=== PATIENT | male | born 1980 | race Caucasian/White ===

== ENCOUNTER 2017-05-10 18:57 | Emergency (ER) | payer BC ==
--- NOTE | 2017-05-12 13:56 | CR ---
INDICATION: Chest pain. CHEST: Portable AP upright view of the chest 05/10/2017 was obtained. No comparisons were available. Heart, mediastinum, and bony thorax were unremarkable. An active infiltrate or effusion was not identified. Overlying EKG leads are noted. IMPRESSION: No active disease. MTDD
--- NOTE | 2017-05-13 13:02 | ER ---
DATE SEEN: 05/10/2017 TIME SEEN: The patient was seen at 1900. HISTORY OF PRESENT ILLNESS: This is a 36-year-old [place] and also intermittent fork lift truck operator, who comes in with history of chest discomfort, sharp right suprasternal that came on at 3.30 to 4.30 this afternoon. He was working on the computer. His notes he was somewhat upset because the computer numbers were not matching [employer] and more upset than usual. 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 No history of trauma. No history of fever. No shortness of breath, diabetes, heart disease, high blood pressure, or other asthma. No history of sports or other related injury. No weight loss or weight gain. No other serious health problems. No history of dyslipidemia, gout, diabetes, and hypertension. Mother and father alive, well, and healthy. The patient is and his is attending and both are very pleasant. MEDICATIONS: None. ALLERGIES: None. REVIEW OF SYSTEMS: HEENT: Negative. CARDIORESPIRATORY: As noted above. No history of palpitations, syncope, presyncope, irregular heartbeat, diaphoresis, abdominal pain, nausea, vomiting, diarrhea, or emesis with chest pain. No reflux history. No weight loss history. GENITOURINARY: Negative. No dysuria, frequency, urgency, or difficulty passing urine. No prostatism. MUSCULOSKELETAL: Negative. Denies joint pain. Denies rheumatoid arthritis or other items for arthritis. PSYCHIATRIC: Negative. NEUROLOGIC: Negative. PHYSICAL EXAMINATION: VITAL SIGNS: Blood pressure 154/68 and repeat blood pressure 142/68; pulse 67, respirations 16, oxygen saturation 100%, and temperature 36.4 degrees. GENERAL: Muscular, well-tanned man, in no acute distress. No diaphoresis. HEENT: PERRLA intact. Pharynx without abnormality. No thyromegaly. No masses. NECK: No cervical adenopathy. LUNGS: Clear to auscultation without rales, rhonchi, or wheezes. HEART: S1, S2. No irregular rate or rhythm. No S3 or S4. ABDOMEN: Soft. No abdominal discomfort. No guarding. No CVA percussion tenderness. No spinous process tenderness to thoracic, lumbar spine, or cervical spine. He does have reproducible right third and fourth costochondral discomfort. No sternochondral discomfort. Radial and ulnar pulses intact. Cap refill intact. EXTREMITIES: Lower extremities without edema. Deep tendon reflexes normal to upper and lower extremities. Cranial nerves 2 through 12 intact. Strength intact to upper and lower extremities. DIAGNOSTIC STUDIES: EKG is normal sinus rhythm. T-wave inverted lead III. Otherwise, normal CA borderline left axis deviation. X-ray: Chest x-ray is negative. LABORATORY FINDINGS: Negative. Troponin is negative. 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 White count 7700, PMNs 60, lymphs 20, monos 10, and 6 eosinophils. D-dimer is less than 100. Troponin is less than 0.01. Complete metabolic panel otherwise normal, trace elevated AST and ALT. The patient is not an alcoholic. The patient after this lab tests were done, his note dhe lifted a 200+ pound rock 2 or 3 days ago, and this perhaps has something to do with his right 3 and 4 costochondritis. DIAGNOSES: 1. Right 3 and 4 costochondritis secondary to lifting a 200 to 250 pound rock. 2. Chest pain secondary to #1. 3. Elevated hemoglobin possibly secondary to machine exposure, carbon monoxide, carbon dioxide. 4. Trace elevation of AST and ALT, etiology indeterminate. He denies alcohol. No evidence for PE. Reassurance, slight elevation in eosinophils did not make the cut off 8%. Diagnosis of this slight elevation may reflect pulmonary irritation and/or could be gastrointestinal parasites. Follow up with his doctor in a week. No restrictions activity. Use ibuprofen 600 mg, Tylenol 1000 mg together every 6 hours for muscle discomfort, right upper chest costochondritis. /[id number] MURRAY/MODL
== END 2017-05-10 20:30 | disposition home or self-care (01) ==
LOC: FB.ED 18:57
DX: M94.0 Chondrocostal junction syndrome [Tietze] (principal); R94.5 Abnormal results of liver function studies; R71.8 Other abnormality of red blood cells
CPT/HCPCS: 36415; 71010; 80053; 84484; 85025; 85379; 93005; 99285

== ENCOUNTER 2018-01-10 16:31 | Emergency (ER) | payer BC ==
[2018-01-10] MEDS ORDERED: Lidocaine 1% 20 ML MDV INFILT ONE (16:32)
--- NOTE | 2018-01-10 16:54 | EDM.PDOC ---
ED HPI GENERAL MEDICAL PROBLEM - General Chief Complaint: Laceration Stated Complaint: LACERATION ON LEFT HAND Time Seen by Provider: 01/10/18 16:49 Source of Information: Reports: Patient History Limitations: Reports: No Limitations - History of Present Illness INITIAL COMMENTS - FREE TEXT/NARRATIVE: Grazed left hand with chainsaw. Last Tetanus 3yrs ago. Patient is right hand dominant. Onset: Sudden Duration: Other ([employer]) Location: Reports: Other (Left Hand) Quality: Reports: Ache Severity: Mild Improves with: Reports: None Worsens with: Reports: None Associated Symptoms: Reports: No Other Symptoms - Related Data Allergies Allergy/AdvReac Type Severity Reaction Status Date / Time No Known Allergies Allergy Verified 01/10/18 16:39 Home Meds: Home Meds Albuterol [Proventil HFA] 2 puff INH Q4HR PRN 01/10/18 [History] Cephalexin [Keflex] 500 mg PO BID #14 cap 01/10/18 [Rx] Past Medical History Cardiovascular History: Reports: None Respiratory History: Reports: Asthma Social & Family History - Family History Family Medical History: Noncontributory - Tobacco Use Smoking Status *Q: Never Smoker - Caffeine Use Caffeine Use: Reports: Coffee, Energy Drinks - Recreational Drug Use Recreational Drug Use: No ED ROS GENERAL - Review of Systems Review Of Systems: See Below Constitutional: Reports: No Symptoms HEENT: Reports: No Symptoms Respiratory: Reports: No Symptoms Cardiovascular: Reports: No Symptoms Endocrine: Reports: No Symptoms GI/Abdominal: Reports: No Symptoms : Reports: No Symptoms Musculoskeletal: Reports: Other (left hand pain) Skin: Reports: Other (laceration left hand) Neurological: Reports: No Symptoms Psychiatric: Reports: No Symptoms Hematologic/Lymphatic: Reports: No Symptoms Immunologic: Reports: No Symptoms ED EXAM, SKIN/RASH Exam: See Below Exam Limited By: No Limitations General Appearance: Alert, WD/WN, No Apparent Distress Nose: Normal Inspection Throat/Mouth: Normal Inspection Head: Atraumatic, Normocephalic Neck: Supple Respiratory/Chest: No Respiratory Distress Cardiovascular: Normal Peripheral Pulses Extremities: Normal Range of Motion Neurological: Alert, Oriented Psychiatric: Normal Affect, Normal Mood Skin: Other (2cm irregular laceration dorsum left hand overlying 3rd MCP joint, tendon intact) Location, Skin: Other (left hand) ED SKIN PROCEDURES - Laceration/Wound Repair Left Hand Lac/Wound length In cm: 2 Appearance: Subcutaneous Distal NVT: Neuro & Vascular Intact, No Tendon Injury Anesthetic Type: Local Local Anesthesia - Lidocaine (Xylocaine): 1% Plain Local Anesthetic Volume: 2cc Skin Prep: Chlorhexidine (Hibiciens), Saline Saline Irrigation (cc's): 10 Exploration/Debridement/Repair: Wound Explored, Minimal Debridement Closed with: Sutures Suture Size: 4-0 # of Sutures: 11 Suture Type: Nylon Course - Vital Signs Last Recorded V/S: Last Vital Signs Temp 37.1 C 01/10/18 16:40 Pulse 64 01/10/18 16:40 Resp 17 01/10/18 16:40 BP 128/91 H 01/10/18 16:40 Pulse Ox 98 01/10/18 16:40 - Orders/Labs/Meds Orders: Active Orders 24 hr Category Date Time Status Bacitracin [Bacitracin Oint] Med 01/10/18 17:16 Once 0.9 gm TOP ONETIME ONE Cephalexin [Keflex] Med 01/10/18 17:16 Once 500 mg PO ONETIME ONE Departure - Departure Time of Disposition: 17:18 Disposition: Home, Self-Care 01 Condition: Good Clinical Impression: Laceration of left hand - Discharge Information Prescriptions: Cephalexin [Keflex] 500 mg PO BID #14 cap Instructions: Laceration Care, Adult, [id number] Referrals: Alfonso Plunkett MD [Primary Care Provider] - Forms: ED Department Discharge Additional Instructions: Suture removal 10-14 days. - My Orders Last 24 Hours: My Active Orders 01/10/18 17:16 Bacitracin [Bacitracin Oint] 0.9 gm TOP ONETIME ONE Cephalexin [Keflex] 500 mg PO ONETIME ONE - Assessment/Plan Last 24 Hours: My Active Orders 01/10/18 17:16 Bacitracin [Bacitracin Oint] 0.9 gm TOP ONETIME ONE Cephalexin [Keflex] 500 mg PO ONETIME ONE
[2018-01-10] MEDS ORDERED: Bacitracin Oint 15 GM Tube TOP ONE (17:16)
[2018-01-10] MEDS ORDERED: Cephalexin 500 MG Cap PO ONE (17:16)
== END 2018-01-10 17:50 | disposition home or self-care (01) ==
LOC: FB.ED 16:31
DX: S61.412A Laceration without foreign body of left hand, initial encounter (principal); W29.3XXA Contact with powered garden and outdoor hand tools and machinery, initial encounter
CPT/HCPCS: 12001; 99282; A9270; 12002